=== PATIENT | female | born 1980 | race Caucasian/White ===

== ENCOUNTER 2016-06-07 16:48 | Emergency (ER) | payer MEDICARE, OTHER ==
[2016-06-07 19:37] LABS: HCG,QUALITATIVE URINE NEGATIVE
[2016-06-07] MEDS ORDERED: ONDANSETRON 4 MG/2ML 2 ML VIAL ONE (20:41)
[2016-06-07] MEDS ORDERED: DEXAMETHASONE SOD PHOS 10 MG/1 ML VIAL ONE (20:41)
[2016-06-07] MEDS ORDERED: HYDROMORPHONE HCL 1 MG/ML SYRINGE ONE ×2 (20:41→21:34)
[2016-06-07] MEDS ORDERED: DIAZEPAM 5 MG/ML SYRINGE 2 ML ONE (20:42)
--- NOTE | 2016-06-08 07:49 | RAD ---
Exams: Three-view lumbar spine and single view pelvis COMPARISON: CT 01/13/2009 INDICATION: Low back pain since fall on 06/04/2016. TECHNIQUE: AP, lateral and AP angled views lumbar spine and a single AP view of the pelvis are obtained. FINDINGS: There are 5 nonrib-bearing lumbar vertebra. Sagittal alignment of the lumbar spine is maintained. There is minor anterior vertebral body spurring although overall vertebral body height and disc spaces are maintained. There is hardware noted at the S1 and S2 levels which extends into the bilateral iliac bones. Hardware appears intact. No acute displaced fracture is identified within the pelvis. Hip joint spaces are preserved and symmetric. Femoral heads are normal in contour. IMPRESSION: No acute osseous abnormality within the lumbar spine or pelvis. Hardware within the sacrum and iliac bones appears intact.
== END 2016-06-07 21:40 | disposition home or self-care (01) ==
LOC: ED 16:48
DX: M54.5 Low back pain (principal); F17.210 Nicotine dependence, cigarettes, uncomplicated